=== PATIENT | male | born 1965 | race Caucasian/White ===

== ENCOUNTER → 2018-01-02 | Outpatient (CLI) | payer BC ==
--- NOTE | 2018-01-03 08:08 | US ---
EXAMINATION TYPE: US abdomen limited DATE OF EXAM: 01/02/2018 COMPARISON: NONE CLINICAL HISTORY: R94.5 Abnormal Liver Function. no symptoms, abn labs EXAM MEASUREMENTS: Liver Length: 16.2 cm Gallbladder Wall: 0.2 cm CBD: 0.4 cm Right Kidney: 9.9 x 5.0 x 4.5 cm Pancreas: not seen due to bowel gas Liver: difficult to penetrate with focal fatty sparring , findings can be compatible with mild fatt y infiltration. Mild hepatomegaly at 16.2 cm is present. Normal less than 15.5 cm. Gallbladder: wnl Evidence for sonographic Painter's sign: no CBD: wnl Right Kidney: wnl IMPRESSION: 1. Limited examination due to bowel gas. 2. No suspicious acute changes by ultrasound.
== END | disposition home or self-care (01) ==
LOC: RADUSWWP 15:28
PROVIDERS: ATTEND Internal Medicine
DX: R94.5 Abnormal results of liver function studies (principal)
CPT/HCPCS: 76705

== ENCOUNTER 2018-10-31 07:45 | Day surgery (SDC) | payer BC ==
[2018-10-29 16:09] VITALS: BMI 27.3
[~2018-10-31 07:45] MED LIST: LIDOCAINE 1% 20 ML VIAL (10MG/ML) FOR IV START INTRADERMA PRN
[2018-10-31 08:32] VITALS: RESP 16; TEMP 98.3
[2018-10-31] MEDS: LACTATED RINGERS 1,000 ML IV SCH ×2 (08:42→09:11)
[2018-10-31] MEDS ORDERED: PROPOFOL 10 MG/ML 20 ML VIAL IV ONE (09:12)
--- NOTE | 2018-10-31 09:44 | P.PCN ---
Date of Procedure: 10/31/18 Procedure(s) Performed: Procedure: Colonoscopy and polypectomy. Preoperative diagnosis: Screening for neoplasia. Postoperative diagnosis: Small sigmoid polyp snared but no large polyps or cancer. Preparation: HalfLytely prep. Sedation: Was provided by anesthesia. Brief clinical history: The patient is a 53-year-old male who is scheduled for this evaluation for screening for neoplasia age being his risk factor. His father had polyps but there is no family history of colon cancer. He has no abdominal complaints, bleeding or anemia. This would be his first colonoscopy. Procedure: With the patient on his left lateral decubitus position and after informed consent and adequate sedation, the perianal area was inspected and it did not show any fissures or fistulas. There were no masses felt on digital rectal examination. The Olympus CFH 190L video colonoscope was then inserted in the rectum in the usual fashion and advanced to the cecum. There was a small polyp in the mid sigmoid which I snared and retrieved by suction but there were no large polyps or cancer. The mucosa appeared healthy. No obvious diverticular disease or other pathology. I retroflexed the endoscope in the rectum before the endoscope was withdrawn. The patient tolerated the procedure well. Plan: The patient was reassured. He will follow up with you as planned and I recommended repeat exam in 5 years.
[2018-10-31 10:16] VITALS: BP 115/84; PULSE 76
== END 2018-10-31 10:27 | disposition home or self-care (01) ==
LOC: ORWHC2ENDO 07:45
DX: Z12.11 Encounter for screening for malignant neoplasm of colon (principal); K63.5 Polyp of colon; Z83.71 Family history of colonic polyps; K21.9 Gastro-esophageal reflux disease without esophagitis; I10 Essential (primary) hypertension; I48.91 Unspecified atrial fibrillation; Z87.891 Personal history of nicotine dependence; Z79.899 Other long term (current) drug therapy
CPT/HCPCS: 88305; 45385; J2704

== ENCOUNTER 2020-04-25 09:53 | Observation (INO) | payer BC ==
[2020-04-25] MEDS ORDERED: ADENOSINE 3 MG/ML 2 ML VIAL IVP STA ×2 (10:18→10:19)
[2020-04-25] MEDS ORDERED: SODIUM CHLORIDE 0.9% 1,000 ML IV STA (10:23)
[2020-04-25 10:43] LABS: Basophils # (A) 0.1 k/uL (0-0.2); Basophils % (A) 1 %; Eosinophils # (A) 0.2 k/uL (0-0.7); Eosinophils % (A) 2 %; HCT 48.1 % (39.0-53.0); HGB 16.8 gm/dL (13.0-17.5); Lymphocytes % (A) 41 %; MCH 32.5 pg (25.0-35.0); MCV 92.8 fL (80.0-100.0); Mean Platelet Volume 7.3; Monocytes # (A) 0.4 k/uL (0-1.0); Monocytes % (A) 4 %; Neutrophils # (A) 4.8 k/uL (1.3-7.7); Neutrophils % (A) 49 %; Platelet Count 313 k/uL (150-450); RBC 5.18 m/uL (4.30-5.90); RDW 12.9 % (11.5-15.5); WBC 9.8 k/uL (3.8-10.6)
--- NOTE | 2020-04-25 10:44 | ED ---
General Adult HPI - General Chief complaint: Arrhythmia/Palpitations Stated complaint: AFIB Time Seen by Provider: 04/25/20 09:55 Source: patient, RN notes reviewed, old records reviewed Mode of arrival: wheelchair Limitations: no limitations - History of Present Illness Initial comments: This a 55-year-old male who presents to the emergency department because his heart is racing. Patient states she's had multiple episodes this in the past. Patient states he normally just pulses breath and it eventually goes away but today it did not. Patient states he does feel it racing and he is a little bit short of breath. Patient denies any chest pain. Patient denies any recent fever chills or cough. Patient states he was drinking veryFourthofJuly.Parth felixdruguse. - Related Data Home Medications Medication Instructions Recorded Confirmed Hydrochlorothiazide 25 mg PO DAILY 10/29/18 04/25/20 Lisinopril [Zestril] 5 mg PO DAILY 10/29/18 04/25/20 Omeprazole Magnesium [PriLOSEC OTC] 20 mg PO DAILY 10/29/18 04/25/20 Allergies Allergy/AdvReac Type Severity Reaction Status Date / Time No Known Allergies Allergy Verified 04/25/20 11:30 Review of Systems ROS Statement: Those systems with pertinent positive or pertinent negative responses have been documented in the HPI. ROS Other: All systems not noted in ROS Statement are negative. Past Medical History Past Medical History: Atrial Fibrillation, GERD/Reflux, Hypertension Additional Past Medical History / Comment(s): HX OF RAPID HEART RATE WITH CARDIAC ABLATION History of Any Multi-Drug Resistant Organisms: None Reported Past Surgical History: Appendectomy, Cardiac Ablation Additional Past Surgical History / Comment(s): APPENDECTOMY (CHILD) Past Anesthesia/Blood Transfusion Reactions: No Reported Reaction Past Psychological History: No Psychological Hx Reported Smoking Status: Former smoker Past Alcohol Use History: Occasional Past Drug Use History: None Reported - Past Family History Father Family Medical History: Cancer Additional Family Medical History / Comment(s): BLADDER CANCER General Exam - General Exam Comments Initial Comments: GENERAL: Patient is well-developed and well-nourished. Patient is nontoxic and well- hydrated and is in mild distress. ENT: Neck is soft and supple. No significant lymphadenopathy is noted. Oropharynx is clear. Moist mucous membranes. Neck has full range of motion without e liciting any pain. EYES: The sclera were anicteric and conjunctiva were pink and moist. Extraocular movements were intact and pupils were equal round and reactive to light. Eyelids were unremarkable. PULMONARY: Unlabored respirations. Good breath sounds bilaterally. No audible rales rhonchi or wheezing was noted. CARDIOVASCULAR: Patient is extremely tachycardic at 200 beats a minute ABDOMEN: Soft and nontender with normal bowel sounds. No palpable organomegaly was noted. There is no palpable pulsatile mass. SKIN: Skin is clear with no lesions or rashes and otherwise unremarkable. NEUROLOGIC: Patient is alert and oriented x3. Cranial nerves II through XII are grossly intact. Motor and sensory are also intact. Normal speech, volume and content. Symmetrical smile. MUSCULOSKELETAL: Normal extremities with adequate strength and full range of motion. No lower extremity swelling or edema. No calf tenderness. LYMPHATICS: No significant lymphadenopathy is noted PSYCHIATRIC: Normal psychiatric evaluation. Limitations: no limitations Course Vital Signs 04/25/20 04/25/20 04/25/20 09:57 10:10 10:16 Temperature 97.5 F L Pulse Rate 190 H 213 H 115 H Pulse Rate [ 213 H Applied Statistician ] Respiratory 18 18 Rate Blood Pressure 127/85 142/97 O2 Sat by Pulse 99 100 Oximetry 04/25/20 10:18 Temperature Pulse Rate Pulse Rate [ 112 H Applied Statistician ] Respiratory Rate Blood Pressure O2 Sat by Pulse Oximetry Medical Decision Making - Medical Decision Making EKG shows SVT is 217 bpm IA interval is 120 tresses 88 QT interval is 208 QTC is 395. Patient's EKG shows no ST segment elevation or depression. Adenosine was given to the patient 6 mg. It had no effect. I increased the dose to 12 mg and the patient converted to a sinus rhythm. Patient's EKG shows sinus tachycardia at 102 bpm IA interval 264 QRS is 80 QT interval 352 QTC is 458. Patient's EKG shows no ST segment elevation or depression. Patient's troponin was mildly elevated I spoke with cardiology he wanted the patient admitted and to have an echo done. - Lab Data Result diagrams: 04/25/20 10:10 04/25/20 10:10 Lab Results 04/25/20 04/25/20 04/25/20 Range/Units 10:10 10:10 10:10 WBC 9.8 (3.8-10.6) k/uL RBC 5.18 (4.30-5.90) m/uL Hgb 16.8 (13.0-17.5) gm/dL Hct 48.1 (39.0-53.0) % MCV 92.8 (80.0-100.0) fL MCH 32.5 (25.0-35.0) pg MCHC 35.0 (31.0-37.0) g/dL RDW 12.9 (11.5-15.5) % Plt Count 313 (150-450) k/uL Neutrophils % 49 % Lymphocytes % 41 % Monocytes % 4 % Eosinophils % 2 % Basophils % 1 % Neutrophils # 4.8 (1.3-7.7) k/uL Lymphocytes # 4.0 (1.0-4.8) k/uL Monocytes # 0.4 (0-1.0) k/uL Eosinophils # 0.2 (0-0.7) k/uL Basophils # 0.1 (0-0.2) k/uL PT 9.9 (9.0-12.0) sec INR 0.9 (<1.2) APTT 22.4 (22.0-30.0) sec Sodium 135 L (137-145) mmol/L Potassium 3.7 (3.5-5.1) mmol/L Chloride 102 (98-107) mmol/L Carbon Dioxide 19 L (22-30) mmol/L Anion Gap 14 mmol/L BUN 22 H (9-20) mg/dL Creatinine 0.94 (0.66-1.25) mg/dL Est GFR (CKD-EPI)AfAm >90 (>60 ml/min/1.73 sqM) Est GFR (CKD-EPI)NonAf >90 (>60 ml/min/1.73 sqM) Glucose 152 H (74-99) mg/dL Calcium 9.4 (8.4-10.2) mg/dL Magnesium 1.9 (1.6-2.3) mg/dL Total Bilirubin 0.6 (0.2-1.3) mg/dL AST 84 H (17-59) U/L ALT 59 H (4-49) U/L Alkaline Phosphatase 54 (38-126) U/L Troponin I (0.000-0.034) ng/mL Total Protein 7.1 (6.3-8.2) g/dL Albumin 4.2 (3.5-5.0) g/dL TSH 1.390 (0.465-4.680) mIU/L Urine Opiates Screen (NotDetected) Ur Oxycodone Screen (NotDetected) Urine Methadone Screen (NotDetected) Ur Propoxyphene Screen (NotDetected) Ur Barbiturates Screen (NotDetected) U Tricyclic Antidepress (NotDetected) Ur Phencyclidine Scrn (NotDetected) Ur Amphetamines Screen (NotDetected) U Methamphetamines Scrn (NotDetected) U Benzodiazepines Scrn (NotDetected) Urine Cocaine Screen (NotDetected) U Marijuana (THC) Screen (NotDetected) 04/25/20 04/25/20 Range/Units 10:10 11:14 WBC (3.8-10.6) k/uL RBC (4.30-5.90) m/uL Hgb (13.0-17.5) gm/dL Hct (39.0-53.0) % MCV (80.0-100.0) fL MCH (25.0-35.0) pg MCHC (31.0-37.0) g/dL RDW (11.5-15.5) % Plt Count (150-450) k/uL Neutrophils % % Lymphocytes % % Monocytes % % Eosinophils % % Basophils % % Neutrophils # (1.3-7.7) k/uL Lymphocytes # (1.0-4.8) k/uL Monocytes # (0-1.0) k/uL Eosinophils # (0-0.7) k/uL Basophils # (0-0.2) k/uL PT (9.0-12.0) sec INR (<1.2) APTT (22.0-30.0) sec Sodium (137-145) mmol/L Potassium (3.5-5.1) mmol/L Chloride (98-107) mmol/L Carbon Dioxide (22-30) mmol/L Anion Gap mmol/L BUN (9-20) mg/dL Creatinine (0.66-1.25) mg/dL Est GFR (CKD-EPI)AfAm (>60 ml/min/1.73 sqM) Est GFR (CKD-EPI)NonAf (>60 ml/min/1.73 sqM) Glucose (74-99) mg/dL Calcium (8.4-10.2) mg/dL Magnesium (1.6-2.3) mg/dL Total Bilirubin (0.2-1.3) mg/dL AST (17-59) U/L ALT (4-49) U/L Alkaline Phosphatase (38-126) U/L Troponin I 0.036 H* (0.000-0.034) ng/mL Total Protein (6.3-8.2) g/dL Albumin (3.5-5.0) g/dL TSH (0.465-4.680) mIU/L Urine Opiates Screen Not Detected (NotDetected) Ur Oxycodone Screen Not Detected (NotDetected) Urine Methadone Screen Not Detected (NotDetected) Ur Propoxyphene Screen Not Detected (NotDetected) Ur Barbiturates Screen Not Detected (NotDetected) U Tricyclic Antidepress Not Detected (NotDetected) Ur Phencyclidine Scrn Not Detected (NotDetected) Ur Amphetamines Screen Not Detected (NotDetected) U Methamphetamines Scrn Not Detected (NotDetected) U Benzodiazepines Scrn Not Detected (NotDetected) Urine Cocaine Screen Not Detected (NotDetected) U Marijuana (THC) Screen Not Detected (NotDetected) Critical Care Time Critical Care Time: Yes Total Critical Care Time: 35 Disposition Clinical Impression: Supraventricular tachycardia Disposition: ADMITTED IP TO THIS [facility] Referrals: Abigail English MD [Primary Care Provider] - 1-2 days Time of Disposition: 12:38
--- NOTE | 2020-04-25 10:49 | XR ---
EXAMINATION TYPE: XR chest 2V DATE OF EXAM: 04/25/2020 COMPARISON: NONE TECHNIQUE: PA and lateral views submitted. HISTORY: Cardiac dysrhythmia FINDINGS: The lungs are clear and there is no pneumothorax, pleural effusion, or focal pneumonia. Basilar areas of subsegmental consolidation. Biapical pleural thickening. Heart size normal. No overt failure. Mild hypertrophic change of the vertebral column. IMPRESSION: 1. Basilar atelectasis favored over pneumonia. Correlate clinically.
[2020-04-25 10:51] LABS: ALT 59 U/L (4-49); AST 84 U/L (17-59); African American GFR (CKD) >90 (>60 ml/min/1.73 sqM); Albumin 4.2 g/dL (3.5-5.0); Alkaline Phosphatase 54 U/L (38-126); Anion Gap 14 mmol/L; Blood Urea Nitrogen 22 mg/dL (9-20); Calcium 9.4 mg/dL (8.4-10.2); Carbon Dioxide 19 mmol/L (22-30); Chloride 102 mmol/L (98-107); Glucose 152 mg/dL (74-99); Magnesium 1.9 mg/dL (1.6-2.3); Non-African American GFR(CKD) >90 (>60 ml/min/1.73 sqM); Potassium 3.7 mmol/L (3.5-5.1); Sodium 135 mmol/L (137-145); Total Bilirubin 0.6 mg/dL (0.2-1.3); Total Protein 7.1 g/dL (6.3-8.2)
[2020-04-25 10:58] LABS: INR 0.9 (<1.2)
[2020-04-25 10:59] LABS: Partial Thromboplastin Time 22.4 sec (22.0-30.0); Prothrombin Time 9.9 sec (9.0-12.0)
[2020-04-25 11:43] LABS: Amphetamine Screen,Urine Not Detected (NotDetected); Barbiturate Screen,Urine Not Detected (NotDetected); Benzodiazepines Screen,Urine Not Detected (NotDetected); Cocaine Screen,Urine Not Detected (NotDetected); Methadone Screen, Urine Not Detected (NotDetected); Opiate Screen,Urine Not Detected (NotDetected); Oxycodone Screen, Urine Not Detected (NotDetected); Phencyclidine Screen,Urine Not Detected (NotDetected); Tricyclic Antidepressant,Urine Not Detected (NotDetected); Urn Cannabinoid Scrn Not Detected (NotDetected)
[2020-04-25] MEDS ORDERED: NITROGLYCERIN SL TABS 0.4 MG TAB SUBLINGUAL PRN (12:41)
--- NOTE | 2020-04-25 17:45 | P.HPIM ---
History of Present Illness H&P Date: 04/25/20 Chief Complaint: Palpitations 55-year-old male with PMH of atrial fibrillation, hypertension presents to the ED for palpitations. Patient states that he woke up and was getting ready to get out of bed when he started experiencing sudden onset of palpitations. He also reports chest tightness. He realized that these symptoms were associated with his atrial fibrillation and decided to come to the ED. He denied any shortness of breath or dizziness. He denied any headache, lower extremity edema, nausea or vomiting, fever or chills, cough, changes in urination or bowel habits. No changes in appetite or weight. He denies any numbness, weakness/tingling of the extremities. In the ED, EKG was done which showed SVT with ventricular rate of 217. He was given 6 mg adenosine without resolution. He was then given 12 mg of adenosine which converted him to sinus rhythm. Repeat EKG showed sinus tachycardia in the 100s. CBC was unremarkable. INR was negative. CMP showed sodium of 135, bicarbonate of 19, BUN of 22, glucose 152, AST of 84, ALT of 59. Troponin was 0.036, 0.059, 0.088. TSH was within normal limits. UDS is negative. Patient is admitted for SVT and troponin elevation, cardiology consultation. Review of Systems Pertinent positives and negatives as discussed in HPI, a complete review of systems was performed and all other systems are negative. Past Medical History Past Medical History: Atrial Fibrillation, GERD/Reflux, Hypertension Additional Past Medical History / Comment(s): HX OF RAPID HEART RATE WITH CARDIAC ABLATION History of Any Multi-Drug Resistant Organisms: None Reported Past Surgical History: Appendectomy, Cardiac Ablation Additional Past Surgical History / Comment(s): APPENDECTOMY (CHILD) Past Anesthesia/Blood Transfusion Reactions: No Reported Reaction Past Psychological History: No Psychological Hx Reported Smoking Status: Former smoker Past Alcohol Use History: Occasional Additional Past Alcohol Use History / Comment(s): QUIT SMOKING 20 YRS AGO., SMOKED APPROX 20 YEARS. Past Drug Use History: None Reported - Past Family History Father Family Medical History: Cancer Additional Family Medical History / Comment(s): BLADDER CANCER Medications and Allergies Home Medications Medication Instructions Recorded Confirmed Type Hydrochlorothiazide 25 mg PO DAILY 10/29/18 04/25/20 History Lisinopril [Zestril] 5 mg PO DAILY 10/29/18 04/25/20 History Omeprazole Magnesium [PriLOSEC OTC] 20 mg PO DAILY 10/29/18 04/25/20 History Allergies Allergy/AdvReac Type Severity Reaction Status Date / Time No Known Allergies Allergy Verified 04/25/20 11:30 Physical Exam Vitals: Vital Signs Temp Pulse Pulse Resp BP BP Pulse Ox 04/25/20 17:03 98.6 F 14 129/97 99 04/25/20 14:19 98.8 F 92 18 152/92 99 04/25/20 13:10 98.3 F 101 H 18 166/98 97 04/25/20 10:18 112 H 04/25/20 10:16 115 H 18 142/97 100 04/25/20 10:10 213 H 213 H 04/25/20 09:57 97.5 F L 190 H 18 127/85 99 Intake and Output 04/25/20 04/25/20 04/25/20 06:59 14:59 22:59 Intake Total 600 Balance 600 Intake: Oral 600 Other: Weight 76.3 kg General: [non toxic], [no distress], [appears at stated age] Derm: [warm], [dry] Head: [atraumatic], [normocephalic], [symmetric] Eyes: [EOMI], [no lid lag], [anicteric sclera] Mouth: [no lip lesion], [mucus membranes moist] Cardiovascular: [S1S2 reg], [tachycardic], [positive posterior tibial pulse bilateral], Lungs: [CTA bilateral], [no rhonchi, no rales] , [no accessory muscle use] Abdominal: [soft], [ nontender to palpation], [no guarding], [no appreciable organomegaly] Ext: [no gross muscle atrophy], [no edema], [no contractures] Neuro: [ CN II-XI grossly intact], [no focal neuro deficits] Psych: [Alert], [oriented], [appropriate affect] Results CBC & Chem 7: 04/25/20 10:10 04/25/20 10:10 Labs: Abnormal Lab Results - Last 24 Hours (Table) 04/25/20 04/25/20 04/25/20 Range/Units 10:10 10:10 12:56 Sodium 135 L (137-145) mmol/L Carbon Dioxide 19 L (22-30) mmol/L BUN 22 H (9-20) mg/dL Glucose 152 H (74-99) mg/dL AST 84 H (17-59) U/L ALT 59 H (4-49) U/L Troponin I 0.036 H* 0.059 H* (0.000-0.034) ng/mL 04/25/20 Range/Units 16:15 Sodium (137-145) mmol/L Carbon Dioxide (22-30) mmol/L BUN (9-20) mg/dL Glucose (74-99) mg/dL AST (17-59) U/L ALT (4-49) U/L Troponin I 0.088 H* (0.000-0.034) ng/mL Thrombosis Risk Factor Assmnt - Choose All That Apply Any of the Below Risk Factors Present?: No Other Risk Factors: No Thrombosis Risk Factor Assessment Level: Very Low Risk Assessment and Plan Assessment: SVT Troponin elevation likely demand ischemia Transaminitis Hypertension GERD His SVT was terminated with 12 mg of adenosine in the ED. He is currently sinus tachycardia. He'll be placed on telemetry monitoring. Echocardiogram will be ordered. Cardiology will be consulted. Patient has mild elevation of troponin which is likely related to demand ischemia. Acute coronary syndrome has been ruled out. He will be started on aspirin. Management as above. AST 84, ALT 59. Unknown etiology. Follow lipid panel. Repeat CMP tomorrow morning. His blood pressure is 129/97. Continue lisinopril and hydrochlorothiazide. Monitor vitals and adjust medications as necessary. Restart Prilosec for history of GERD. DVT prophylaxis: [Heparin] Discussed with: [Patient] Anticipated discharge: [1-2 days] Anticipated discharge place: [Home] A total of [35] minutes was spent on the care of this complex patient more than 50% of the time was spent in counseling and care coordination. Patient names his Mary decision maker if he can't make decisions for himself. Patient would like to be full code. His PCP is Dr. English.
[2020-04-25] MEDS ORDERED: ACETAMINOPHEN TAB 325 MG TAB PO PRN (17:50)
[2020-04-25] MEDS ORDERED: NALOXONE 0.4 MG/ML 1 ML VIAL IV PRN (17:50)
[2020-04-25] MEDS ORDERED: HYDROcodone/APAP 5-325MG 1 EACH TAB PO PRN (17:50)
[2020-04-25] MEDS ORDERED: MORPHINE SULFATE 2 MG/ML SYRINGE IV PRN (17:50)
[2020-04-25] MEDS: SODIUM CHLORIDE 0.9% 1,000 ML IV SCH (18:24)
[2020-04-25 19:54] VITALS: RESP 16
[2020-04-25] MEDS: HEPARIN SODIUM,PORCINE 5,000 UNIT/ML 1 ML VIAL SQ SCH (20:38)
[2020-04-26] MEDS: SODIUM CHLORIDE 0.9% 1,000 ML IV SCH (06:39)
[2020-04-26 07:16] LABS: ALT 45 U/L (4-49); AST 43 U/L (17-59); African American GFR (CKD) >90 (>60 ml/min/1.73 sqM); Albumin 3.7 g/dL (3.5-5.0); Alkaline Phosphatase 46 U/L (38-126); Anion Gap 9 mmol/L; Blood Urea Nitrogen 14 mg/dL (9-20); Carbon Dioxide 26 mmol/L (22-30); Chloride 103 mmol/L (98-107); Cholesterol 192 mg/dL (<200); Glucose 103 mg/dL (74-99); HDL Cholesterol 60 mg/dL (40-60); LDL Cholesterol,Calculated 56 mg/dL (0-99); Non-African American GFR(CKD) >90 (>60 ml/min/1.73 sqM); Potassium 3.9 mmol/L (3.5-5.1); Sodium 138 mmol/L (137-145); Total Bilirubin 0.8 mg/dL (0.2-1.3); Total Protein 6.2 g/dL (6.3-8.2); Triglycerides 382 mg/dL (<150)
[2020-04-26] MEDS ORDERED: PANTOPRAZOLE 40 MG TABLET PO SCH (07:30)
[2020-04-26] MEDS ORDERED: lisinopriL 5 MG TAB PO SCH (09:00)
[2020-04-26] MEDS ORDERED: ASPIRIN 325 MG TAB PO SCH (09:00)
[2020-04-26] MEDS ORDERED: hydroCHLOROthiazide 25 MG TAB PO SCH (09:00)
[2020-04-26] MEDS: HEPARIN SODIUM,PORCINE 5,000 UNIT/ML 1 ML VIAL SQ SCH (09:26)
--- NOTE | 2020-04-26 10:58 | ECHOF ---
Referral Reason:Arrhythmia MEASUREMENTS -------- HEIGHT: 172.7 cm WEIGHT: 76.2 kg BP: 133/68 RVIDd: 3.1 cm (< 3.3) IVSd: 1.0 cm (0.6 - 1.1) LVIDd: 4.2 cm (3.9 - 5.3) LVPWd: 1.0 cm (0.6 - 1.1) IVSs: 1.6 cm LVIDs: 3.2 cm LVPWs: 1.3 cm LA Diam: 2.8 cm (2.7 - 3.8) LAESV Index (A-L): 21.65 ml/m Ao Diam: 2.9 cm (2.0 - 3.7) AV Cusp: 2.0 cm (1.5 - 2.6) MV EXCURSION: 18.330 mm (> 18.000) MV EF SLOPE: 87 mm/s (70 - 150) EPSS: 0.4 cm MV E Tremaine: 0.62 m/s MV DecT: 250 ms MV A Tremaine: 0.73 m/s MV E/A Ratio: 0.85 RAP: 5.00 mmHg RVSP: 22.99 mmHg FINDINGS -------- Sinus rhythm. This was a technically good study. LV size, wall thickness and systolic function are normal, with an EF greater than 55%. The left alley tricular size is normal. The right ventricle is normal in size. Normal LA size by volume 22+/-6 ml/m2. The right atrial size is normal. Interatrial and interventricular septum intact. The aortic valve is trileaflet, and appears structurally normal. No aortic stenosis or regurgitation. The mitral valve is normal. There is trace to mild mitral regurgitation. The tricuspid valve appears structurally normal. Mild tricuspid regurgitation present. Right vent ricular systolic pressure is normal at < 35 mmHg. There is no pulmonic regurgitation present. The aortic root size is normal. Normal inferior vena cava with normal inspiratory collapse consistent with estimated right atrial pre ssure of 5 mmHg. There is no pericardial effusion. CONCLUSIONS -------- 1. LV size, wall thickness and systolic function are normal, with an EF greater than 55%. 2. Normal LA size by volume 22+/-6 ml/m2. 3. The aortic valve is trileaflet, and appears structurally normal. No aortic stenosis or regurgitati on. 4. There is trace to mild mitral regurgitation. 5. Mild tricuspid regurgitation present. 6. There is no pericardial effusion. BLENDING SUPERVISOR: Yesica Staley RDCS
[2020-04-26 13:18] VITALS: BP 136/68; PULSE 77; TEMP 97.7
--- NOTE | 2020-04-26 15:23 | P.DS ---
Providers Date of admission: 04/25/20 12:41 Expected date of discharge: 04/26/20 Attending physician: Nikhil Loo MD Consults: 04/25/20 12:41 Consult Physician Urgent Consulting Provider: [facility] Consult Reason/Comments: SVT, elevated troponin Do you want consulting provider notified?: Yes Primary care physician: Abigail English [facility] Course: This is a 55-year-old male with past medical history significant for essential hypertension who presented to the ER with palpitation and heart pounding. Patient was evaluated in the ER and was found to have evidence of SVT. This was aborted with 2 doses of adenosine. Patient was placed on observation and remained in sinus rhythm and telemetry monitoring. He was seen and evaluated by cardiology. Echocardiogram showed preserved ejection fraction with no significant valvular abnormalities. Patient was started on metoprolol 25 mg twice daily. He was cleared by cardiology for discharge. He will be scheduled for a cardiac stress test on his next follow-up with cardiology. For further details about this hospitalization please refer to the electronic chart. Plan - Discharge Summary Discharge Rx Participant: No New Discharge Prescriptions: New Metoprolol Tartrate [Lopressor] 25 mg PO BID #60 tab Continue Omeprazole Magnesium [PriLOSEC OTC] 20 mg PO DAILY Lisinopril [Zestril] 5 mg PO DAILY Discontinued Hydrochlorothiazide 25 mg PO DAILY Discharge Medication List Lisinopril [Zestril] 5 mg PO DAILY 10/29/18 [History] Omeprazole Magnesium [PriLOSEC OTC] 20 mg PO DAILY 10/29/18 [History] Metoprolol Tartrate [Lopressor] 25 mg PO BID #60 tab 04/26/20 [Rx] Follow up Appointment(s)/Referral(s): Alise Silva MD [STAFF PHYSICIAN] - 05/06/20 10:45 am Abigail English MD [Primary Care Provider] - 1-2 days Patient Instructions/Handouts: Supraventricular Tachycardia (ED), Cardiac Ablation (DC), Cardiac Stress Test (DC) Discharge Disposition: HOME SELF-CARE
--- NOTE | 2020-04-26 16:20 | P.CRDCN ---
History of Present Illness Consult date: 04/26/20 History of present illness: This is a 54-year-old gentleman with history of atrial fibrillation for which he had an ablation several years ago. Over the last year or so patient has been having intermittent palpitations which are brief and self terminating with Valsalva maneuver. This time, patient started having palpitations and did not go away. Patient came to the emergency room and he was found to be SVT with fast ventricular response. Patient was given adenosine 2 with final conversion to sinus rhythm. Patient denied any chest pain. He remained stable without any recurrence of chest pains. His troponins are mildly elevated. However, his echo showed normal LV function. As patient is clinically stable. Patient is being discharged home on beta palomo. Will discontinue hydrochlorothiazide. Patient will have follow-up in the office in one week. We'll do a noninvasive workup to rule out underlying ischemic heart disease. Subsequently, may cons ider possible ablation. Review of Systems As per the chart Past Medical History Past Medical History: Atrial Fibrillation, GERD/Reflux, Hypertension Additional Past Medical History / Comment(s): HX OF RAPID HEART RATE WITH CARDIAC ABLATION History of Any Multi-Drug Resistant Organisms: None Reported Past Surgical History: Appendectomy, Cardiac Ablation Additional Past Surgical History / Comment(s): APPENDECTOMY (CHILD) Past Anesthesia/Blood Transfusion Reactions: No Reported Reaction Past Psychological History: No Psychological Hx Reported Smoking Status: Former smoker Past Alcohol Use History: Occasional Additional Past Alcohol Use History / Comment(s): QUIT SMOKING 20 YRS AGO., SMOKED APPROX 20 YEARS. Past Drug Use History: None Reported - Past Family History Father Family Medical History: Cancer Additional Family Medical History / Comment(s): BLADDER CANCER Medications and Allergies Home Medications Medication Instructions Recorded Confirmed Type Lisinopril [Zestril] 5 mg PO DAILY 10/29/18 04/25/20 History Omeprazole Magnesium [PriLOSEC OTC] 20 mg PO DAILY 10/29/18 04/25/20 History Metoprolol Tartrate [Lopressor] 25 mg PO BID #60 tab 04/26/20 Rx Allergies Allergy/AdvReac Type Severity Reaction Status Date / Time No Known Allergies Allergy Verified 04/25/20 11:30 Physical Exam Vitals: Vital Signs Temp Pulse Resp BP Pulse Ox 04/26/20 12:00 97.7 F 77 16 136/68 96 04/26/20 08:01 16 04/26/20 08:00 97.8 F 75 16 143/96 97 04/26/20 04:00 97.8 F 71 16 133/68 96 04/25/20 23:37 98.2 F 76 16 123/80 95 04/25/20 19:52 99.0 F 89 16 123/81 96 04/25/20 17:03 98.6 F 14 129/97 99 Intake and Output 04/26/20 04/26/20 04/26/20 06:59 14:59 22:59 Intake Total 400 310 Balance 400 310 Intake: IV 10 Invasive Line 1 10 Oral 400 300 Other: # Voids 1 Weight 76.7 kg GENERAL EXAM: Patient is alert and oriented and doesn't appear to be in any acute distress HEENT: Normocephalic. Normal reaction of pupils, equal size, normal range of extraocular motion. No erythema or exudates in the throat. NECK: No masses, no nuchal rigidity. CHEST: No chest wall deformity. LUNGS: Equal air entry with no crackles or wheeze. HEART: S1 and S2 normal with no audible mumurs or gallops. Regular rhythm, femorals equal on both sides.. ABDOMEN: No hepatosplenomegaly, normal bowel sounds, no guarding or rigidity. SKIN: No rashes CENTRAL NERVOUS SYSTEM: No focal deficits. EXTREMITIES: No cyanosis, clubbing or edema. Results 04/25/20 10:10 04/26/20 05:25 Cardiac Enzymes 04/25/20 04/26/20 Range/Units 16:15 05:25 AST 43 (17-59) U/L Troponin I 0.088 H* (0.000-0.034) ng/mL Lipids 04/26/20 Range/Units 05:25 Triglycerides 382 H (<150) mg/dL Cholesterol 192 (<200) mg/dL HDL Cholesterol 60 (40-60) mg/dL Comprehensive Metabolic Panel 04/26/20 Range/Units 05:25 Sodium 138 (137-145) mmol/L Potassium 3.9 (3.5-5.1) mmol/L Chloride 103 (98-107) mmol/L Carbon Dioxide 26 (22-30) mmol/L BUN 14 (9-20) mg/dL Creatinine 0.89 (0.66-1.25) mg/dL Glucose 103 H (74-99) mg/dL Calcium 9.0 (8.4-10.2) mg/dL AST 43 (17-59) U/L ALT 45 (4-49) U/L Alkaline Phosphatase 46 (38-126) U/L Total Protein 6.2 L (6.3-8.2) g/dL Albumin 3.7 (3.5-5.0) g/dL Current Medications Generic Name Dose Route Start Last Admin Trade Name Freq PRN Reason Stop Dose Admin Acetaminophen 650 mg 04/25/20 17:50 Tylenol Tab PO Q6HR PRN Mild Pain or Fever > 100.5 Hydrocodone Bitart/Acetaminophen 1 each 04/25/20 17:50 Bazine 5-325 PO Q4HR PRN Moderate Pain Aspirin 325 mg 04/26/20 09:00 04/26/20 09:26 Aspirin PO 325 mg DAILY [place] Administration Heparin Sodium (Porcine) 5,000 unit 04/25/20 21:00 04/26/20 09:26 Heparin SQ 5,000 unit Q12HR [place] Administration Sodium Chloride 1,000 mls @ 75 mls/hr 04/25/20 18:00 04/26/20 06:39 Saline 0.9% IV 75 mls/hr .[id number] [place] Administration Lisinopril 5 mg 04/26/20 09:00 04/26/20 09:26 Zestril PO 5 mg DAILY [place] Administration Metoprolol Tartrate 25 mg 04/26/20 21:00 Lopressor PO BID [place] Morphine Sulfate 2 mg 04/25/20 17:50 Morphine Sulfate (Inj) IV Q4HR PRN Severe Pain Naloxone HCl 0.2 mg 04/25/20 17:50 Narcan IV Q2M PRN Opioid Reversal Nitroglycerin 0.4 mg 04/25/20 12:41 Nitrostat SUBLINGUAL Q5M PRN Chest Pain Pantoprazole Sodium 40 mg 04/26/20 07:30 04/26/20 06:40 Protonix PO 40 mg [id number] [place] Administration Intake and Output 04/26/20 04/26/20 04/26/20 06:59 14:59 22:59 Intake Total 400 310 Balance 400 310 Intake: IV 10 Invasive Line 1 10 Oral 400 300 Other: # Voids 1 Weight 76.7 kg 04/25/20 10:10 04/26/20 05:25 EKG Interpretations (text) Initially showed SVT. Subsequent EKG showed normal sinus rhythm Assessment and Plan (1) Supraventricular tachycardia Current Visit: Yes Status: Acute Code(s): I47.1 - SUPRAVENTRICULAR TACHYCARDIA SNOMED Code(s): 1463794 (2) Atrial fibrillation Current Visit: Yes Status: Acute Code(s): I48.91 - UNSPECIFIED ATRIAL FIBRILLATION SNOMED Code(s): 91262012 Plan: Patient echo is normal. EKG is normal. No recurrence of any symptoms. Being discharged on beta palomo
[2020-04-26] MEDS ORDERED: METOPROLOL TARTRATE 25 MG TAB PO SCH (21:00)
== END 2020-04-26 16:23 | disposition home or self-care (01) ==
LOC: EC 09:53 → 3SCARD 12:41 → INTOOBSV 12:41 → UNDODISIN 04-26 16:23
PROVIDERS: ADMIT Internal Medicine; ATTEND Internal Medicine
DX: I47.1 Supraventricular tachycardia (principal); R74.0 Nonspecific elevation of levels of transaminase and lactic acid dehydrogenase [LDH]; R79.89 Other specified abnormal findings of blood chemistry; I10 Essential (primary) hypertension; K21.9 Gastro-esophageal reflux disease without esophagitis; I48.91 Unspecified atrial fibrillation; Z03.818 Encounter for observation for suspected exposure to other biological agents ruled out; Z79.899 Other long term (current) drug therapy; Z87.891 Personal history of nicotine dependence; Z98.890 Other specified postprocedural states; Z90.49 Acquired absence of other specified parts of digestive tract; Z80.52 Family history of malignant neoplasm of bladder
CPT/HCPCS: 96372 ×2; 93005 ×2; 96376; 96361; 96374; 99291; 36415; 93306; 80061; 80053 ×2; 83735; 84443; 84484; 85025; 85610; 85730; 80306; 71046; G0378 ×2; U0003; J1644 ×2; J0153

== ENCOUNTER 2020-08-31 08:26 | Day surgery (SDC) | payer BC ==
[2020-08-27 15:41] VITALS: BMI 27.3
[~2020-08-31 08:26] MED LIST changes: +DEXAMETHASONE SOD PHOSPHATE 4 MG/ML 1 ML VIAL IV ONE; +LIDOCAINE 1% (10MG/ML) FOR IV START INTRADERMA PRN; -LIDOCAINE 1% 20 ML VIAL (10MG/ML) FOR IV START INTRADERMA PRN; +MIDAZOLAM 2 MG/2 ML VIAL IV PRN; +MORPHINE SULFATE 4 MG/ML SYRINGE IV PRN; +ONDANSETRON 4 MG/2 ML VIAL IVP ONE
[2020-08-31] MEDS ORDERED: SODIUM CHLORIDE 0.9% 1,000 ML IV ONE ×2 (08:39→11:40)
[2020-08-31] MEDS ORDERED: ePHEDrine SULFATE/0.9% NACL/PF 50 MG/5 ML SYRINGE IV ONE (10:18)
[2020-08-31] MEDS ORDERED: MIDAZOLAM 2 MG/2 ML VIAL ONE (10:18)
[2020-08-31] MEDS ORDERED: ISOPROTERENOL 250 MCG/1.25 ML SYR IV ONE (10:18)
[2020-08-31] MEDS ORDERED: fentaNYL (PF) 50 MCG/ML 2 ML AMP ONE (10:18)
[2020-08-31] MEDS ORDERED: HEPARIN SODIUM,PORCINE 10,000 UNIT/ML 1 ML VIAL ONE (10:18)
[2020-08-31] MEDS ORDERED: SUCCINYLCHOLINE CHLORIDE 100 MG/5 ML SYR IV ONE (10:18)
[2020-08-31] MEDS ORDERED: PROPOFOL 10 MG/ML 20 ML VIAL IV ONE (10:18)
[2020-08-31] MEDS ORDERED: ROCURONIUM 10 MG/ML (10 ML VIAL) IV ONE (10:18)
[2020-08-31] MEDS ORDERED: METOPROLOL TARTRATE 5 MG/5 ML VIAL IVP ONE (10:18)
[2020-08-31] MEDS ORDERED: LIDOCAINE 1% INJ 10MG/ML (20 ML MDV) ONE ×2 (10:18→10:33)
[2020-08-31] MEDS ORDERED: PHENYLEPHRINE-0.9% NACL SYG 1 MG/10 ML SYRINGE ONE (10:18)
[2020-08-31] MEDS ORDERED: PROTAMINE SULFATE 10 MG/ML 5 ML VIAL IV ONE (10:18)
[2020-08-31] MEDS ORDERED: LIDOCAINE 1% INJ 10MG/ML (20 ML MDV) SQ ONE (11:06)
[2020-08-31] MEDS ORDERED: HEPARIN SOD,PORK IN 0.45% NACL 25,000 UNIT in 0.45% NACL 1 250ML.BAG IV ONE (11:21)
[2020-08-31] MEDS ORDERED: IOPAMIDOL-370 100ML BTL INJ ONE (12:41)
[2020-08-31] MEDS ORDERED: ACETAMINOPHEN TAB 325 MG TAB PO PRN (12:57)
[2020-08-31] MEDS ORDERED: HYDROcodone/APAP 5-325MG 1 EACH TAB PO PRN (12:57)
[2020-08-31] MEDS ORDERED: ACETAMINOPHEN IV (For NPO) 1,000 MG in EMPTY BAG 1 BAG IVPB ONE (12:57)
--- NOTE | 2020-08-31 13:27 | P.PRLE ---
RE: Ashwin Bedoya Dear Abigail Betts underwent pulmonary vein isolation for management of paroxysmal atrial fibrillation. He should continue ELIQUIS for at least 3 months Following the ablation and EP study was performed and on high-dose lisinopril a rapid atrial tachycardia could be induced. If he has clinical episodes of atrial tachycardia I will address this in the future We also noted that he had bilious secretions in his stomach and he does have a lot of upper GI complaints content to his and takes omeprazole He will continue to follow with you and with Dr. Silva as before Thank you for entrusting me with the care of the patient Warm regards Sincerely Daryl Robles
--- NOTE | 2020-08-31 13:31 | P.EPPROC ---
- EP Procedure Note Electrophysiology Procedure Note: Diagnosis Atrial fibrillation, symptomatic, refractory to therapy Status post ablation for atrial fibrillation, paroxysmal Result No left atrial appendage mass seen on intracardiac echo Successful A. fib ablation/pulmonary vein isolation of all veins using cryo- ablation Complete entrance block in all 4 veins confirmed No evidence for phrenic nerve injury Esophageal deflection YES Electrical cardioversion with a synchronized shock across the chest YES , inducible atrial tachycardia cycle length 200 ms, eccentric activation, on Isuprel, pacing at a cycle length of 390 ms Procedure details Patient was brought to the EP lab in a fasting state. Written informed consent was obtained prior to the procedure. Procedure performed under general anesthesia After initial muscle relaxant use, muscle relaxants were not given thereafter in order to assess phrenic nerve during procedure. Patient prepped and draped as per protocol Full cryo-set up with standard preparation of the cryoablation tools done. Femoral Venous access obtained on the right and left groins Venous and arterial Sheaths placed. Diagnostic catheters for the high right atrium, phrenic nerve stimulation and pacing, His bundle, RV and coronary sinus placed Intracardiac echo catheter placed. Long sheath placed in the right atrium Left and right transseptal catheterization performed under intracardiac echo guidance. Intravenous heparin with aCT above 300 Later, catheter positioning and balloon positioning in the left atrium, under intracardiac echo guidance Diagnostic EP study with Drug infusion Coronary sinus pacing and recording Baseline measurements Sinus cycle length 708 ms, MT 104 ms, QRS 99 QT 373 ms AH 67, HV interval 22 Atrial pacing performed from the high right atrium and the coronary sinus Sinus recovery times a 600, 540 ms were 781, 665 and 760 ms AV node Wenckebach block to 90 ms Slow pathway conduction 320 ms Transseptal catheterization performed RA pressure 19/15 LA pressure 16/3 Transseptal catheterization performed with standard sheath. The cryoablation sheath was then placed with an over the wire exchange without any acute complications. All 4 pulmonary veins were isolated in the following sequence: Left superior followed by left inferior followed by right superior followed by right inferior The cryo-ablation balloon was placed at the os of each vein 1.5 mL of IV dye was injected to confirm an occluded vein Goal during cryoablation was to achieve complete occlusion of the pulmonary vein, achieve -30 degrees C at 30 seconds and achieve -40 degrees C at 60 seconds and a time to effect of less than 60-90 seconds, . If not the balloon was repositioned to obtain this result After completion of Cryoblation with durations from 180-240 seconds, entrance block was confirmed with the Attain circular catheter in a roving fashion around the antrum of the pulmonary veins Phrenic nerve pacing was performed from the SVC, right innominate vein area and diaphragm voltage was monitored. Diaphragmatic contractions were also monitored manually for strength of contraction. Parameter goals for each cryo freeze Complete occlusion of the appropriate vein -30 degrees C by 30 seconds -40 degrees C by 60 seconds Minimum between minus 40-55 degrees C Thaw time greater than 10 seconds Balloon visualized by intracardiac echo The esophagus was intubated. Esophageal Temperature monitoring with a CIRCA catheter formed. Esophageal deflection for hypothermia of the esophagus below 30 degrees C Left superior pulmonary vein Complete isolation, entrance block Left inferior pulmonary vein Complete isolation, entrance block Right superior pulmonary vein, during phrenic nerve pacing Complete isolation, entrance block Right inferior pulmonary vein, during phrenic nerve pacing Complete isolation, entrance block At the end of the procedure the Achieve catheter was once again used to check for entrance block Phrenic nerve stimulation was performed to confirm diaphragmatic stimulation the end of the procedure Cine fluoroscopy was performed at the very end of the procedure to confirm movement of both diaphragms with inspiration and expiration At the end of the procedure the patient was extubated Heparin was reversed Venous sheaths were removed and hemostasis assured Procedures performed (PVI - CRYO Ablation) Diagnostic EP study CS pacing and recording Left and right transseptal catheterization Catheter the mapping of the tachycardia (NOT 3D mapping) Intracardiac echocardiography Pulmonary vein isolation with transseptal and comprehensive EPS, [id number] Electrical cardioversion with a synchronized shock across the chest [id number] Drug Infusion +[id number]
[2020-08-31] MEDS ORDERED: FAMOTIDINE 20 MG/2 ML VIAL IV ONE (14:16)
[2020-08-31] MEDS: SODIUM CHLORIDE 0.9% 1,000 ML IV SCH (15:52)
[2020-08-31] MEDS: LACTATED RINGERS 1,000 ML IV SCH (15:52)
[2020-08-31] MEDS ORDERED: MAG HYDROX/AL HYDROX/SIMETH 30 ML CUP PO PRN (16:44)
[2020-08-31] MEDS: PANTOPRAZOLE 40 MG/10 ML VIAL IVP SCH (16:56)
[2020-08-31] MEDS: APIXABAN 5 MG TAB PO SCH (20:01)
[2020-08-31] MEDS: METOPROLOL TARTRATE 25 MG TAB PO SCH (20:01)
[2020-09-01] MEDS: LACTATED RINGERS 1,000 ML IV SCH (06:51)
[2020-09-01] MEDS: SODIUM CHLORIDE 0.9% 1,000 ML IV SCH (06:51)
[2020-09-01 08:18] VITALS: BP 110/73; PULSE 76; RESP 16; TEMP 96.5
[2020-09-01] MEDS ORDERED: PANTOPRAZOLE 40 MG TABLET PO SCH (09:00)
[2020-09-01] MEDS ORDERED: lisinopriL 10 MG TAB PO SCH (09:00)
[2020-09-01] MEDS ORDERED: COLCHICINE 0.6 MG EACH PO ONE (09:00)
[2020-09-01] MEDS: METOPROLOL TARTRATE 25 MG TAB PO SCH (09:01)
[2020-09-01] MEDS: APIXABAN 5 MG TAB PO SCH (09:01)
[2020-09-01] MEDS: PANTOPRAZOLE 40 MG/10 ML VIAL IVP SCH (09:03)
--- NOTE | 2020-09-01 14:01 | P.DS ---
Providers Attending physician: Daryl Robles Primary care physician: [facility] Course: Patient came in for an elective EP study. He underwent successful catheter mapping, intracardiac echocardiography, pulmonary vein isolation and A. fib ablation. He is seen and examined sitting up in bed eating breakfast in no acute distress. He complains of some mild discomfort in his chest when he takes in a deep breath. He denies shortness of breath, dizziness or palpitations. Blood pressure 110/73 heart rate 76 afebrile maintaining oxygen saturation on room air. Currently maintained on lisinopril 10 mg daily, Lopressor 25 mg twice a day and Eliquis 5 mg twice a day. GENERAL: Well-appearing, well-nourished and in no acute distress. NECK: Supple without JVD or thyromegaly. LUNGS: Breath sounds clear to auscultation bilaterally. Respiration equal and unlabored. No wheezes, rales or rhonchi. HEART: Regular rate and rhythm without murmurs, rubs or gallops. S1 and S2 heard. EXTREMITIES: Normal range of motion, no edema. No clubbing or cyanosis. Peripheral pulses intact. Bilateral groin access site soft, nontender with no ecchymosis or hematoma noted. Strong distal pulses. ASSESSMENT Paroxysmal atrial fibrillation status post successful cryoablation PLAN Give 1 dose of colchicine 1.2 mg by mouth now prior to discharge. Provided the patient with an incentive spirometer to use every hour while awake. Increase activity and ambulation in the halls. If he remains stable he may be discharged home to follow-up with Dr. Silva in one week. Nurse Practitioner note has been reviewed, I agree with a documented findings and plan of care. Patient was seen and examined. Plan - Discharge Summary Discharge Rx Participant: No New Discharge Prescriptions: Continue Omeprazole Magnesium [PriLOSEC OTC] 20 mg PO DAILY lisinopriL [Zestril] 10 mg PO DAILY Metoprolol Tartrate [Lopressor] 25 mg PO BID #60 tab Apixaban [Eliquis] 5 mg PO BID Discharge Medication List Omeprazole Magnesium [PriLOSEC OTC] 20 mg PO DAILY 10/29/18 [History] lisinopriL [Zestril] 10 mg PO DAILY 10/29/18 [History] Metoprolol Tartrate [Lopressor] 25 mg PO BID #60 tab 04/26/20 [Rx] Apixaban [Eliquis] 5 mg PO BID 08/27/20 [History] Follow up Appointment(s)/Referral(s): Alise Silva MD [STAFF PHYSICIAN] - 09/03/20 3:15 pm Abigail English MD [Primary Care Provider] - 09/02/20 1:00 pm Patient Instructions/Handouts: Electrophysiology Study (DC) Activity/Diet/Wound Care/Special Instructions: Post EP study - Ablation instructions 1. Keep access sites dry for 2 days. 2. No heavy lifting or straining for 2 days. 3. Avoid bending the hips repeatedly for 2 days. 4. You may go up and down stairs slowly Call if the following is noted 1. Bleeding, increasing swelling or pain at the access sites. 2. Increasing chest discomfort, especially upon taking a deep breath. 3. Increasing shortness of breath, at rest or with exertion. 4. Undue cough / phlegm 5. Difficulty or pain while swallowing. 6. Pain or change in color in the extremities. 7. Fever, chills, rigors. 8. Increasing headache or neurologic symptoms. 9. Dizziness, fainting, palpitations Discharge Disposition: HOME SELF-CARE
[2020-09-02] MEDS ORDERED: PANTOPRAZOLE 40 MG TABLET PO SCH (07:30)
== END 2020-09-01 14:28 | disposition home or self-care (01) ==
LOC: CATHEP 08:26 → 3NCARDOBS 14:49 → CATHEP 09-01 14:28
PROVIDERS: ATTEND Internal Medicine Clinical Cardiac Electrophysiology
DX: I48.0 Paroxysmal atrial fibrillation (principal); Z79.01 Long term (current) use of anticoagulants; Z79.899 Other long term (current) drug therapy; I10 Essential (primary) hypertension; K21.9 Gastro-esophageal reflux disease without esophagitis; I47.1 Supraventricular tachycardia; Z72.0 Tobacco use
CPT/HCPCS: 85347; 92960; 93623; 93662; 93609; 93656; C1769 ×5; C1894 ×2; C1733; C1766; C1730; J2250; J2720; J1644 ×2; J2001; J3010; J0131; J2370; J0330; J2704; C9113; Q9967

== ENCOUNTER → 2021-03-16 | Day surgery (SDC) | payer BC ==
[2021-03-14 14:28] VITALS: BMI 26.9
[~2021-03-16] MED LIST changes: -DEXAMETHASONE SOD PHOSPHATE 4 MG/ML 1 ML VIAL IV ONE; +LACTATED RINGERS 1,000 ML IV SCH; -MIDAZOLAM 2 MG/2 ML VIAL IV PRN; -MORPHINE SULFATE 4 MG/ML SYRINGE IV PRN; -ONDANSETRON 4 MG/2 ML VIAL IVP ONE; +PROPOFOL 10 MG/ML 20 ML VIAL IV ONE
[2021-03-16 07:31] VITALS: TEMP 98.1
--- NOTE | 2021-03-16 08:06 | P.PCN ---
Date of Procedure: 03/16/21 Procedure(s) Performed: BRIEF HISTORY: Patient is a 56-year-old, pleasant, white male scheduled for an upper endoscopy as a part of evaluation of long-standing history of GERD of almost 20 years duration. He is maintained on omeprazole 40 mg daily PROCEDURE PERFORMED: Esophagogastroduodenoscopy with biopsy. PREOPERATIVE DIAGNOSIS: Long-standing history of GERD. IV sedation per anesthesia. PROCEDURE: After informed consent was obtained, the patient was brought into the endoscopy unit. IV sedation was administered by Anesthesia under continuous monitoring. Initially the Olympus GIF-140 video endoscope was inserted into the mouth. Esophagus intubated without any difficulty. It was gradually advanced into the stomach and duodenum and carefully examined. The bulb and the second part of the duodenum appeared normal. The scope at this time was withdrawn to the stomach, adequately insufflated with air, and upon careful examination, mucosa of the antrum, had linear areas of erythema consistent with gastritis and biopsies were done from this area. The body, cardia and the fundus appeared normal. The scope was then withdrawn into the esophagus. Small sliding type hiatal hernia noted. The GE junction was located at 38 cm from the incisors. It appeared slightly irregular but there was no evidence of esophagitis or Parker's esophagus. The esophagus appeared normal. There were no erosions or ulcerations seen and the patient tolerated the procedure well. IMPRESSION: 1. Linear erythema in the antrum consistent with mild gastritis. 2. Small hiatal hernia and irregular GE junction but no evidence of esophagitis or Parker's esophagus. RECOMMENDATIONS: The findings of this examination were discussed with the patient as well as his family. He was advised to follow with the biopsy results . He was advised to decrease omeprazole to 20 mg daily and follow antireflux measures..
[2021-03-16 08:25] VITALS: BP 137/85; PULSE 79; RESP 16
== END ==
LOC: ORWHC2ENDO 06:55
PROVIDERS: ATTEND Internal Medicine Gastroenterology
DX: K29.50 Unspecified chronic gastritis without bleeding (principal); K44.9 Diaphragmatic hernia without obstruction or gangrene; I10 Essential (primary) hypertension; I48.91 Unspecified atrial fibrillation; G47.33 Obstructive sleep apnea (adult) (pediatric); Z87.891 Personal history of nicotine dependence; K21.9 Gastro-esophageal reflux disease without esophagitis; Z90.89 Acquired absence of other organs; Z98.890 Other specified postprocedural states; Z79.899 Other long term (current) drug therapy
CPT/HCPCS: 88305; 43239; J2704

== ENCOUNTER → 2021-05-17 | Outpatient (CLI) | payer BC ==
[2021-05-17 14:46] LABS: HCT 43.5 % (39.6-50.0); HGB 15.2 g/dL (13.0-17.0); MCH 32.4 pg (27.0-32.0); MCHC 34.9 g/dL (32.0-37.0); MCV 92.8 fL (80.0-97.0); Mean Platelet Volume 10.6 fL (9.5-12.2); Platelet Count 250 X 10*3/uL (140-440); RBC 4.69 X 10*6/uL (4.40-5.60); RDW 12.8 % (11.5-14.5); WBC 6.91 X 10*3/uL (4.50-10.00)
[2021-05-17 15:46] LABS: Hepatitis B Surface Antigen Non-Reactive (Non-Reactive); Hepatitis C IgG Antibody Non-Reactive (Non-Reactive)
[2021-05-17 17:59] LABS: % Iron Saturation 46.59 (15.00-50.00); African American GFR (CKD) 98.5 (60.0-200.0); Albumin 4.2 g/dL (3.80-4.90); Albumin/Globulin Ratio 1.68 (1.60-3.17); Anion Gap 12.5 mmol/L (4.00-12.00); Calcium 9.2 mg/dL (8.7-10.3); Carbon Dioxide 22.5 mmol/L (21.6-31.8); Globulin 2.5 g/dL (1.6-3.3); Non-African American GFR(CKD) 84.9 (60.0-200.0); Potassium 4.4 mmol/L (3.5-5.5); Total Bilirubin 0.5 mg/dL (0.3-1.2); Total Protein 6.7 g/dL (6.2-8.2)
[2021-05-17 18:32] LABS: Ferritin 677.5 ng/mL (22.0-322.0)
[2021-05-17 19:29] LABS: Protein, Total 6.7 g/dL (6.2-8.2)
[2021-05-18 14:49] LABS: Ceruloplasmin 21.4 mg/dL (20.0-60.0)
[2021-05-19 11:44] LABS: Albumin 4.01 g/dL (3.80-4.90); Gamma Globulin 0.84 g/dL (0.70-1.50)
== END | disposition home or self-care (01) ==
LOC: LABWHC1 09:52
PROVIDERS: ATTEND Internal Medicine Gastroenterology
DX: K76.0 Fatty (change of) liver, not elsewhere classified (principal); R74.01 Elevation of levels of liver transaminase levels
CPT/HCPCS: 36415; 80053; 82103; 82390; 82728; 83516; 83540; 83550; 84165; 85027; 86038; 86803; 87340

== ENCOUNTER 2024-05-30 10:30 | Day surgery (SDC) | payer BC ==
[~2024-05-30 10:30] MED LIST changes: +LACTATED RINGERS 1,000 ML BAG ONE; -LACTATED RINGERS 1,000 ML IV SCH; -LIDOCAINE 1% (10MG/ML) FOR IV START INTRADERMA PRN
--- NOTE | 2024-06-20 17:17 | P.PCN ---
Date of Procedure: 05/30/24 Procedure(s) Performed: This is an addendum to the procedure that was performed on 05/30/2024. Procedure performed colonoscopy with snare polypectomy Procedure: Scope was advanced into the cecum. There was a 5 mm sigmoid colon polyp that was removed by cold snare polypectomy. Small internal hemorrhoids seen.
== END 2024-05-30 11:23 ==
LOC: ORWHC2ENDO 10:30
PROVIDERS: ATTEND Internal Medicine Gastroenterology
DX: Z12.11 Encounter for screening for malignant neoplasm of colon (principal); K63.5 Polyp of colon; I10 Essential (primary) hypertension; E78.5 Hyperlipidemia, unspecified; I48.91 Unspecified atrial fibrillation; G47.33 Obstructive sleep apnea (adult) (pediatric); K21.9 Gastro-esophageal reflux disease without esophagitis; Z79.82 Long term (current) use of aspirin; Z79.899 Other long term (current) drug therapy; Z98.890 Other specified postprocedural states
CPT/HCPCS: 45385; 88305

== ENCOUNTER → 2025-02-12 | Outpatient (CLI) | payer BC ==
[2025-02-12 23:36] LABS: Cryptosporidium Antigen Negative (Negative)
[2025-02-13 12:41] LABS: Calprotectin, Stool 55.9 mcg/g
== END | disposition home or self-care (01) ==
LOC: LABPRL 13:47
PROVIDERS: ATTEND Family Medicine
DX: K52.9 Noninfective gastroenteritis and colitis, unspecified (principal)
CPT/HCPCS: 83630; 83993; 87045; 87046; 87328; 87329

== ENCOUNTER → 2025-03-10 | Outpatient (CLI) | payer BC ==
--- NOTE | 2025-03-10 14:24 | CT ---
EXAMINATION TYPE: CT abdomen pelvis w con DATE OF EXAM: 03/10/2025 COMPARISON: None CLINICAL INDICATION: Male, 60 years old with history of R19.4, R10.9, R19.7; PHH, ABNORMAL WEIGHTLOSS TECHNIQUE: Performed with Oral Contrast and with IV Contrast, patient injected with 95 mL of Isovue 300. CT DLP: [address] CTDI: mGy Automated exposure control for dose reduction was used. FINDINGS: The lung bases are clear. The gallbladder is normal without distention, wall thickening, pericholecystic fluid or gallstones. T here is no biliary ductal dilatation. There is no focal mass or organomegaly involving the liver, pancreas, spleen or adrenal glands. There is marked liver steatosis. There is no solid renal mass or hydronephrosis and there is homogeneous contrast enhancement of the r enal parenchyma. The caliber the abdominal aorta is normal is no retroperitoneal adenopathy or hemorr tyra. The bowel loops are normal in caliber and there is no evidence of dilatation or obstruction. No infla mmatory changes are identified in the bowel wall or mesentery. There is no free intraperitoneal air or fluid. No pelvic mass, free fluid, abscess or adenopathy. There is moderate prostatic hypertrophy. The osseous structures and soft tissues are intact. IMPRESSION: 1. Marked liver steatosis. 2 moderate prostatic hypertrophy. [facility], , 03/10/2025 2:22 PM
== END | disposition home or self-care (01) ==
LOC: RADCTMAIN 12:18
PROVIDERS: ATTEND Family Medicine
DX: K76.0 Fatty (change of) liver, not elsewhere classified (principal); N40.0 Benign prostatic hyperplasia without lower urinary tract symptoms
CPT/HCPCS: 74177; Q9967

== ENCOUNTER → 2025-05-19 | Outpatient (CLI) | payer BC ==
--- NOTE | 2025-05-19 17:37 | MR ---
EXAMINATION TYPE: MR Prostate wo/w con DATE OF EXAM: 05/19/2025 7:35 AM COMPARISON: None. CLINICAL INDICATION: Male, 60 years old with history of R97.20 ELEVATED PROSTATE SPECIFIC ANTIGEN [PS A]; Elevated PSA. TECHNIQUE: Multi-planar, multi-sequence imaging of the pelvis is performed prior to and following the uncomplicated administration of bolus intravenous gadolinium. IV Contrast: 6.5 mL Gadobutrol Interpretive Criteria: PI-RADS v2.1 SERUM PSA: 02/2023=3.81 01/2025=5.02 SURGICAL PATHOLOGY: No data available. FINDINGS: Prostatic dimensions: 5.0 x 4.6 x 2.6 cm. "Bullet" Volume:39.14 (PSA density=0.13 ng/mL/mL) CENTRAL GLAND (Central and Transition Zones/CZ+TZ): Multiple bilateral, heterogenous appearing hypertrophic stromal nodules, without suspicious lesion. M edian lobe hypertrophy with protrusion into the base of the bladder. (PI-RADS 2) PERIPHERAL ZONE (PZ): Bilateral linear, indistinct wedgelike areas of low ADC, and low T2 signal, No evidence of masslike a bnormality, or localized perfusional hypervascularity, to further suggest a focus of clinically signi ficant prostate cancer. (PI-RADS 2) SEMINAL VESICLES (SV): Symmetric and unremarkable. PERIPROSTATIC TISSUES: Unremarkable. LYMPH NODES: No enlarged pelvic lymph node. REMAINING PELVIS: Bladder wall is within normal limits given distention. No abnormal free or organized intrapelvic fluid collection. No pathologic bowel dilation or mural thickening. No hernia visualized OSSEOUS STRUCTURES: No suspicious osseous abnormality. IMPRESSION: 1. No specific features for high-risk prostate cancer. Maximum PI-RADS score: 2. 2. Mild BPH, estimated gland volume 39.14 (PSA density=0.13 ng/mL/mL) 3. No suspicious osseous lesion. No lymphadenopathy. No evidence of prostate adenocarcinoma involving the periprostatic tissues. [facility], , 05/19/2025 5:34 PM
== END | disposition home or self-care (01) ==
LOC: RADMRIMAIN 06:37
PROVIDERS: ATTEND Urology
DX: N40.0 Benign prostatic hyperplasia without lower urinary tract symptoms (principal); R97.20 Elevated prostate specific antigen [PSA]
CPT/HCPCS: 72197; A9585

== ENCOUNTER 2025-05-22 11:44 | Day surgery (SDC) | payer BC ==
[2025-05-19 10:56] VITALS: BMI 23.1
[2025-05-22 12:44] VITALS: TEMP 97.6
[2025-05-22] MEDS: LACTATED RINGERS 1,000 ML IV SCH (12:51)
[2025-05-22] MEDS: IV FLUID CONTINUATION 1,000 ML IV ONE (12:51)
[2025-05-22] MEDS ORDERED: LIDOCAINE 1% INJ 10MG/ML (20 ML MDV) ONE (13:22)
[2025-05-22] MEDS ORDERED: PROPOFOL 10 MG/ML 20 ML VIAL IV ONE (13:22)
--- NOTE | 2025-05-22 13:33 | P.PCN ---
Date of Procedure: 05/22/25 Procedure(s) Performed: BRIEF HISTORY: Patient is a 60-year-old, pleasant, white male scheduled for an upper endoscopy as a part evaluation of chronic epigastric discomfort and abdominal bloating and progressive weight loss of 35 pounds in the last 2 years duration PROCEDURE PERFORMED: Esophagogastroduodenoscopy with biopsy. PREOPERATIVE DIAGNOSIS: Epigastric discomfort, abdominal bloating and progressive weight loss. IV sedation per anesthesia. PROCEDURE: After informed consent was obtained, the patient was brought into the endoscopy unit. IV conscious sedation was administered by Anesthesia under continuous monitoring. Initially the Olympus GIF-140 video endoscope was inserted into the mouth. Esophagus intubated without any difficulty. It was gradually advanced into the stomach and duodenum and carefully examined. The bulb and the second part of the duodenum appeared normal. The length of the duodenum rule out celiac disease. The scope at this time was withdrawn to the stomach, adequately insufflated with air, and upon careful examination, mucosa of the antrum, and mild gastritis and biopsies were done from this area. In the gastric body there were small gastric polyps identified measuring between 5 mm to 1 cm in size which were biopsied. Rest of the body, cardia and the fundus appeared normal. The scope was then withdrawn into the esophagus. Small hiatal hernia noted. The GE junction was located at 39 cm from the incisors. The esophagus appeared normal. There were no erosions or ulcerations seen, biopsies were done from the distal and the patient tolerated the procedure well. IMPRESSION: 1. Mild antral gastritis. 2. Small gastric polyp 3. Small hiatal hernia RECOMMENDATIONS: The findings of this examination were discussed with the patient as well as his family. He was advised to follow-up with the biopsy results. Follow-up in the office in 2 weeks..
[2025-05-22 13:56] VITALS: RESP 16
[2025-05-22 14:03] VITALS: BP 123/81; PULSE 85
== END 2025-05-22 14:30 | disposition home or self-care (01) ==
LOC: ORWHC2ENDO 11:44
PROVIDERS: ATTEND Internal Medicine Gastroenterology
DX: R68.81 Early satiety
CPT/HCPCS: 43239; 88305